=== PATIENT | female | born 1985 ===

== ENCOUNTER 2017-06-06 06:32 | Inpatient (IN) | payer OTHER ==
[2017-06-06] MEDS: Lactated Ringer's 1,000 ML IV SCH ×2 (07:25→08:09)
[2017-06-06 07:40] VITALS: BMI 29.2
[2017-06-06] MEDS ORDERED: Lactated Ringer's 1,000 ML IV SCH (07:45)
[2017-06-06 08:04] LABS: BASO % 0.3 % (0.0-2.0); EOS % 0.2 % (0.0-4.0); HEMATOCRIT 38.4 % (34.0-47.0); LYMPH # 1.8 K/uL (1.0-4.3); LYMPH % 11.8 % (20.0-40.0); MEAN CELL VOLUME 86.1 fl (81.0-99.0); MEAN CORPUSCULAR HEMOGLOBIN 28.9 pg (27.0-31.0); MEAN CORPUSCULAR HGB CONC 33.5 g/dL (33.0-37.0); MEAN PLATELET VOLUME 11.9 fl (7.2-11.7); MONO # 0.9 K/uL (0.0-0.8); MONO % 5.5 % (0.0-10.0); NEUT # 12.8 K/uL (1.8-7.0); NEUT % 82.2 % (50.0-75.0); NRBC % 0.1 % (0.0-0.0); RED CELL DISTRIBUTION WIDTH 14.4 % (11.5-14.5); WHITE BLOOD COUNT 15.5 K/uL (4.8-10.8)
[2017-06-06] MEDS ORDERED: Oxytocin 30 UNITS in Sodium Chloride 0.9% 500 ML IV ONE (08:36)
--- NOTE | 2017-06-06 08:47 | OBHP ---
Datetime: 06/06/2017 08:42 IP Adm Impression: Term, intrauterine IP Admit Plan: Admit to unit; Initiate labor protocol; Observation/Evaluation Pelvic Type - PN: Adequate Extremities - PN: Normal Abdomen - PN: Normal Back - PN: Normal Breast - PN: Not Done Lungs - PN: Normal Heart - PN: Normal Thyroid - PN: Normal Neurologic - PN: Normal HEENT - PN: Normal General - PN: Normal FHR - Baseline A Provider: 160 Nitrazine Provider: Positive EGA AdmitDate IP: 40.5 Vital Signs Provider: Reviewed IP Indication for Induction: Not Applicable IP Chief Complaint: Uterine contractions; Maternal discomfort; evaluation NICHD Variability Prov Fetus A: Moderate 6-25bpm NICHD Accel Fetus A IP Provider: [id number] FHR Category Provider Fetus A: Category I NICHD Decel Fetus A IP Provider: None Dilatation, Provider: 7 Genitourinary Exam: Normal DTRs - PN: Normal Datetime: 06/06/2017 08:35 Admit Comment, IP Provider: 31 y/o F, , IUP@40.5, comes to the [facility] c/o CTX. patient denies any vomiting, BV/LOF, good FM. PNC: Dr. Kan PNL: no abnormal labs as per pt PNI: no issues so far with this as per pt Allg: NKDA Meds: PNV PMH: Denies PSH: Denies OBGYN: 1XSNVD SH: denies alcohol, smoking or illicit drug use FH: + DM: mom VS: Stable PE: unremarkable 7 cm dil A/P:31 y/o F, , IUP@40.5, comes to the [facility] c/o CTX. - Active stage of labor - Admit patient - Initiate Labor protocol - F/U labs - Epidural - Re evaluate Case discussed with Dr. Guo --- Maria D Limon, PGY-1 OB attending addendum: Patient seen and examined by me agree with above assessment and plan. Dr. Jacobsen notified of patien
--- NOTE | 2017-06-06 09:51 | OBDS ---
MATERNAL INFORMATION Provider Comments: of live female over intact perineum in RODRIGUE presentation with loose nu chal cord, 03/29, followed by shoulders and rest of atraumatically, cord clamped and cut, cord b lood obtrained, placenta delivered spontaneously, infant placed on mother's chest, mideolateral first degree repaired with 2-0 vicryl , EBL = 150mL LABOR SUMMARY EDC: 06/01/2017 00:00 No. Babies in Womb: 1 LABOR INFORMATION Group B Beta Strep: Negative MEMBRANES Membranes Rupture Method: Spontaneous Amniotic Fluid Color: Clear Amniotic Fluid Amount: None
[2017-06-06] MEDS ORDERED: Oxycodone/Acetaminophen 5/325 mg Tab PO PRN ×2 (09:54)
[2017-06-06] MEDS ORDERED: Benzocaine/Menthol SPRAY TOP PRN (09:54)
[2017-06-07 07:57] LABS: HEMATOCRIT 28.1 % (34.0-47.0); MEAN CELL VOLUME 87.5 fl (81.0-99.0); MEAN CORPUSCULAR HGB CONC 33.2 g/dL (33.0-37.0); RED CELL DISTRIBUTION WIDTH 14.5 % (11.5-14.5); WHITE BLOOD COUNT 14.2 K/uL (4.8-10.8)
--- NOTE | 2017-06-07 09:46 | OBPPN ---
Datetime: 06/07/2017 09:41 PP Pain Prov: Within normal limits PP Nausea Prov: Denies PP Flatus Prov: Yes PP Breasts Prov: Normal PP Heart Prov: Normal PP Lungs Prov: Normal PP Abdomen/Uterus Prov: Normal PP Lochia Prov: Normal PP Vulva/Perineum Prov: Normal PP CVA Tenderness Prov: Normal PP Extremities Prov: Normal PP Comments Phys Exam Prov: Fundus firm under umbilicus PP Impression Prov: Normal progression PP Plan Prov: Continue present management PP Progress Note Prov: Patient denies CP, no SOB, no N/V, tolerating PO diet, ambulating/voidng well , mild lochia, abdominal pain tolerable with meds A/P 1. reg diet 2. Percocet/Motrin prn pain 3. Encourage ambulation/ IP PP Procedures: None Vital Signs Provider PP: Reviewed; Within Normal Limits
[2017-06-07] MEDS: Multivitamin With Minerals Tab PO SCH (17:38)
[2017-06-08] MEDS: Multivitamin With Minerals Tab PO SCH (08:08)
[2017-06-08 09:06] LABS: HEMATOCRIT 30.8 % (34.0-47.0); MEAN CELL VOLUME 89.1 fl (81.0-99.0); MEAN CORPUSCULAR HEMOGLOBIN 28.6 pg (27.0-31.0); MEAN CORPUSCULAR HGB CONC 32.1 g/dL (33.0-37.0); RED CELL DISTRIBUTION WIDTH 14.6 % (11.5-14.5); WHITE BLOOD COUNT 13.1 K/uL (4.8-10.8)
--- NOTE | 2017-06-08 12:16 | OBPPN ---
Datetime: 06/08/2017 12:05 PP Pain Prov: Within normal limits PP Nausea Prov: Denies PP Flatus Prov: Yes PP BM Prov: Yes PP Abdomen/Uterus Prov: Normal PP Lochia Prov: Normal PP C/S Incision Prov: Not Applicable PP Progress Prov: Normal PP Impression Prov: Normal progression PP Plan Prov: Discharge PP Progress Note Prov: PPD 2 s/p , doing well, breast and bottle feeding Platelets stable today at 89 from 86. Discharge home today Vital Signs Provider PP: Reviewed; Within Normal Limits
--- NOTE | 2017-06-08 12:18 | OBDCSUM ---
Datetime: 06/08/2017 12:16 Discharged to, Provider: Home Follow up at, Provider: Dr. Lucius Iraheta Instr Activity: Normal activity; May Shower Disch Instr Diet: Regular Discharge Instructions, Provider: Routine instructions given Discharge Diagnosis, Provider: Term Delivered Discharge Time: 06/08/2017 12:16 Follow up in weeks, Provider: 6 weeks Contraception discussed, Prov: No Disch Activity Restrictions: No exercising; No lifting; No sexual activity; Nothing in vagina - Inte rcourse, tampons, douche
[2017-06-09 00:46] VITALS: BP 105/62; PULSE 104; RESP 19; TEMP 98.5
== END 2017-06-08 15:09 | disposition home or self-care (01) | DRG 775 ==
LOC: H.EROB2 06:32 → H.L&D 07:40 → H.OB/GYN 15:01
PROVIDERS: ADMIT Obstetrics & Gynecology; ATTEND Obstetrics & Gynecology
PROC: 10E0XZZ Delivery of Products of Conception, External Approach (ICD-10-PCS; principal; 2017-06-06)
PROC: 0HQ9XZZ Repair Perineum Skin, External Approach (ICD-10-PCS; 2017-06-06)
PROC: 4A1HXCZ Monitoring of Products of Conception, Cardiac Rate, External Approach (ICD-10-PCS; 2017-06-06)
DX: O48.0 Post-term pregnancy (principal); O69.81X0 Labor and delivery complicated by cord around neck, without compression, not applicable or unspecified; O70.0 First degree perineal laceration during delivery; Z3A.40 40 weeks gestation of pregnancy; Z37.0 Single live birth